=== PATIENT | female | born 1950 | race Caucasian/White ===

== ENCOUNTER 2018-05-06 13:18 | Day surgery (SDC) | payer MEDICARE, SELFPAY ==
[2017-08-20 15:45] VITALS: BMI 37.0
[2018-05-03 09:43] VITALS: BMI 36.2
[2018-05-06] VITALS (7 sets, daily range): BP systolic 123–141; BP diastolic 60–85; PULSE 80–90; RESP 10–20; TEMP 36.8–37.3; O2SAT 92–96; BMI 36.2
[2018-05-06] MEDS: LACTATED RINGERS 1,000 ML 42 ML IV (13:59)
[2018-05-06 14:10] LABS: Add Manual Diff / Slide Review NO; Basophils Absolute Auto 100 /uL (0-100); Basophils Percent Auto 0.9 % (0-2); Eosinophils Absolute Auto 400 /uL (0-450); Eosinophils Percent Auto 6.8 % (2-4); Hematocrit 36.9 % (36-46); Hemoglobin 12.4 g/dL (12.0-16.0); Lymphocytes Absolute Auto 900 /uL (1100-4500); Mean Corpuscular HGB Conc 33.6 % (30-36); Mean Corpuscular Hemoglobin 31.5 PG (26-34); Mean Corpuscular Volume 93.7 fL (80-100); Monocytes Absolute Auto 600 /uL (0-900); Monocytes Percent Auto 9.3 % (3-14); Neutrophils Absolute Auto 4300 /uL (1500-7000); Platelet Count 292 X10^3/uL (150-400); Red Blood Cell Count 3.93 X10^6/uL (4.0-5.2); Red Cell Distribution Width 16.9 % (11.6-14.8); White Blood Cell Count 6.3 X10^3/uL (4.5-11.0)
[2018-05-06] MEDS: ALBUTEROL 2.5 MG/3 ML NEB (ADULT) INH (14:36)
[2018-05-06] MEDS: CLINDAMYCIN 900 MG/50 ML PIGGYBACK 50 MG IV (15:00)
--- NOTE | 2018-05-06 15:12 | PM.PREOP ---
Pre-operative Note Interval Note History & Physical reviewed/Exam performed by Physician: Yes Changes to H&P: No
[2018-05-06] MEDS: BUPIVACAINE 0.5% (PF) VIAL 30 ML INJ (15:39)
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
[2018-05-06] MEDS: OXYCODONE IR 5 MG TABLET PO (16:35)
== END 2018-05-06 17:12 | disposition home or self-care (01) ==
PROVIDERS: PCP Nurse Practitioner Family; Visit Provider Orthopaedic Surgery
PROC: (CPT 25606; principal; 2018-05-06 15:00)
DX: S52.572A Other intraarticular fracture of lower end of left radius, initial encounter for closed fracture (principal); V49.60XA Unspecified car occupant injured in collision with unspecified motor vehicles in traffic accident, initial encounter; E66.9 Obesity, unspecified; I10 Essential (primary) hypertension; F17.210 Nicotine dependence, cigarettes, uncomplicated; Z68.36 Body mass index [BMI] 36.0-36.9, adult
CPT/HCPCS: 25606; 25651; 36415; 85025; J1100; J2250; J2405; J2704; J3010; J7613

== ENCOUNTER 2018-10-15 12:05 | Day surgery (SDC) | payer MEDICARE, SELFPAY ==
[2017-08-20 15:45] VITALS: BMI 37.0
[2018-10-15] VITALS (8 sets, daily range): BP systolic 120–153; BP diastolic 21–87; PULSE 11–91; RESP 11–91; TEMP 36.2–37.3; O2SAT 85–92; BMI 35.1
[2018-10-15] MEDS: LACTATED RINGERS 1,000 ML 42 ML IV ×2 (12:45→14:10)
--- NOTE | 2018-10-15 12:48 | PM.PREOP ---
Pre-operative Note Interval Note History & Physical reviewed/Exam performed by Physician: Yes Changes to H&P: No
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
[2018-10-15] MEDS: CEFAZOLIN 2 GM/100 ML FROZ.PIGGY IV (13:05)
--- NOTE | 2018-10-15 13:35 | SUR.OPER ---
Supine on padded OR bed, head on pillow, arms secured on padded arm boards at <90 degrees abduction, bump under right hip,right leg is under control of surgeon, safety belt at thigh, tape over blanket over left lower leg.
[2018-10-15] MEDS: BUPIVACAINE 0.5% W/ EPI (PF) VIAL 30 ML INJ (13:48)
--- NOTE | 2018-10-15 14:40 | SUR.OPER ---
Mini C arm time 0.52
[2018-10-15] MEDS: OXYCODONE/ACETAMINOPHEN 5/325 TABLET 1 TAB PO (15:52)
--- NOTE | 2018-10-15 16:23 | SUR.PHASEII ---
Pt assisted with dressing, was able to transfer from stretcher to wchr with 2PA assist. Pt escorted in wchr to ED entrance in stable condition. Transition to vehicle without incident.
== END 2018-10-15 16:14 | disposition admitted as inpatient to this hospital (09) ==
PROVIDERS: PCP Nurse Practitioner Family; Visit Provider Orthopaedic Surgery
PROC: 0SSF04Z Reposition Right Ankle Joint with Internal Fixation Device, Open Approach (ICD-10-PCS; CPT 27822; principal; 2018-10-15 15:00)
DX: S82.851A Displaced trimalleolar fracture of right lower leg, initial encounter for closed fracture (principal); J44.9 Chronic obstructive pulmonary disease, unspecified; F17.210 Nicotine dependence, cigarettes, uncomplicated; E66.9 Obesity, unspecified; Z68.33 Body mass index [BMI] 33.0-33.9, adult; Z98.84 Bariatric surgery status; W19.XXXA Unspecified fall, initial encounter
CPT/HCPCS: 27822; J0690; J2250; J2704; J3010

== ENCOUNTER → 2023-06-30 12:33 | Outpatient (CLI) | payer OTHER, SELFPAY ==
[2017-08-20 15:45] VITALS: BMI 37.0
--- NOTE | 2023-06-30 | DI.CT.S_ITS ---
PROCEDURE: CT ANKLE LEFT WITHOUT INDICATIONS: Pain in left ankle and joints of left foot TECHNIQUE: Noncontrast 1-1.5 mm axial sections acquired from above the tibiotalar joint to the bottom of the calcaneus, with coronal and sagittal reformats. COMPARISON: [facility] [place], [place], XR ANKLE 3 VIEWS WEIGHT BEARING LEFT, 06/22/2023, 14:29. FINDINGS: Image quality: Excellent. Bones: Postsurgical changes are again seen from bimalleolar fracture fixation. Metal hardware is intact. The fractures appear healed. Severe degenerative changes are seen at the mortise joint with full-thickness joint space narrowing, prominent subchondral cystic changes, subchondral sclerosis, and remodeling of the articular surfaces. Marginal osteophytes are also noted. mation Small in situ osteochondral fragments are seen at the lateral talar dome and posterior central tibial plafond. Multiple ossified loose bodies are seen along the anterior tibiotalar joint line. Additional ossifications are seen adjacent to the distal fibula. Small ossification adjacent to the anterior process of the calcaneus is most likely related to remote prior trauma. There is a moderate plantar calcaneal enthesophyte. Degenerative spurring is seen at the dorsal aspect of the talonavicular and naviculocuneiform articulations. Mild degenerative changes are seen in the tarsometatarsal joints, most notably at the 5th tarsometatarsal joint. Soft tissues: Small tibiotalar effusion. The articular cartilages, ligaments, and tendons are not well evaluated with CT. The visualized muscular demonstrates mild grade 2 fatty infiltration and with more severe grade 4 fatty infiltration of the abductor digiti minimi muscle. IMPRESSION: 1. Postsurgical changes from prior bimalleolar fracture fixation with intact hardware. 2. 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 There may be small unstable in situ osteochondral fragments on both sides of the joint. 3. Disproportionate fatty infiltration of the abductor digiti minimi muscle is suspicious for chronic denervation changes/Weiner neuropathy. Approved by: Mat Reyes M.D. on 07/02/2023 at 12:19
--- NOTE | 2023-06-30 | DI.CT.S_ITS ---
PROCEDURE: CT KNEE LEFT WITHOUT CON INDICATIONS: PAIN IN LEFT ANKLE JOINT AND LEFT FOOT JOINTS TECHNIQUE: Noncontrast 1-1.5 mm axial sections acquired from the mid-patella to the proximal tibia, with coronal and sagittal reformats. COMPARISON: None. FINDINGS: Image quality: Excellent. Bones: Marginal tricompartment osteophytes. Lateral patellofemoral joint space loss. No knee joint effusion Soft tissues: PCL well seen, intact. ACL not well seen, possibly disrupted. IMPRESSION: 1. No acute bony abnormality. 2. Degenerative arthritis. 3. Question ACL tear. Comment: Left knee MRI may be helpful. Dictated by: Diaz Munguia M.D. on 07/01/2023 at 11:10 Approved by: Diaz Munguia M.D. on 07/01/2023 at 11:14
== END ==
PROVIDERS: PCP Internal Medicine; Referring Provider Orthopaedic Surgery Foot and Ankle Surgery; Visit Provider Orthopaedic Surgery Foot and Ankle Surgery
DX: M25.572 Pain in left ankle and joints of left foot (principal); M17.12 Unilateral primary osteoarthritis, left knee; M24.072 Loose body in left ankle; S82.842S Displaced bimalleolar fracture of left lower leg, sequela
CPT/HCPCS: 73700